=== PATIENT | male | born 1950 | race Hispanic/Latino ===

== ENCOUNTER 2019-05-05 07:55 | Day surgery (SDC) | payer MEDICARE ==
[2019-05-05] VITALS (8 sets, daily range): BP systolic 102–184; BP diastolic 68–96
[~2019-05-05] VITALS: Ht 162.6 cm; Wt 45.7 kg
[~2019-05-05 07:55] MED LIST: LIDOCAINE HCL 1% 20 ML VIAL ONE; PROPOFOL 10 MG/ML 20ML VIAL IV ONE; SODIUM CHLORIDE 0.9% 1000ML 1,000 ML IV ONE
[2019-05-05] MEDS ORDERED: AMLO10TA7 PO (10:07)
[2019-05-05] MEDS ORDERED: MULT-1296 PO (10:07)
[2019-05-05] MEDS ORDERED: TAMS-1 PO (10:07)
[2019-05-05] MEDS ORDERED: FINA5TAB41 PO (10:07)
[2019-05-05] MEDS ORDERED: PROPOFOL 10 MG/ML 20ML VIAL IV ONE (13:00)
[2019-05-05] MEDS ORDERED: GLYCOPYRROLATE 0.2 MG/ML 5 ML VIAL ONE (13:13)
== END 2019-05-05 14:02 | disposition home or self-care (01) ==
LOC: DAH 07:55
PROVIDERS: ATTEND Surgery
DX: K59.09 Other constipation (principal); K57.30 Diverticulosis of large intestine without perforation or abscess without bleeding; K40.90 Unilateral inguinal hernia, without obstruction or gangrene, not specified as recurrent; E11.9 Type 2 diabetes mellitus without complications; Z79.899 Other long term (current) drug therapy; Z98.890 Other specified postprocedural states
CPT/HCPCS: 45378; 82948; 93005; A4215; A4221; A4222; A4223; A4606; A4620; A4663; J2704 ×2; J3490; J7030

== ENCOUNTER → 2020-12-12 | Outpatient (CLI) | payer OTHER, MEDICARE ==
[~2020-12-12] MED LIST changes: +AMLO-258 PO; +FINA5TAB41 PO; -LIDOCAINE HCL 1% 20 ML VIAL ONE; +MULT-1296 PO; -PROPOFOL 10 MG/ML 20ML VIAL IV ONE; -SODIUM CHLORIDE 0.9% 1000ML 1,000 ML IV ONE; +TAMS-1 PO
== END | disposition home or self-care (01) ==
LOC: SHCH 11:07
PROVIDERS: ATTEND Internal Medicine
DX: R91.8 Other nonspecific abnormal finding of lung field (principal)
CPT/HCPCS: 93306; 93356

== ENCOUNTER → 2020-12-27 | Outpatient (CLI) | payer OTHER, MEDICARE | END | disposition home or self-care (01) | LOC: SHCH 13:37 | PROVIDERS: ATTEND Internal Medicine | DX: I82.629 Acute embolism and thrombosis of deep veins of unspecified upper extremity (principal) | CPT/HCPCS: 93971 ==

== ENCOUNTER → 2023-03-26 | Outpatient (CLI) | payer MEDICARE | END | disposition home or self-care (01) | LOC: SHCH 14:58 | PROVIDERS: ATTEND Internal Medicine Cardiovascular Disease | DX: I35.0 Nonrheumatic aortic (valve) stenosis (principal); I51.7 Cardiomegaly; R06.00 Dyspnea, unspecified | CPT/HCPCS: 93306 ==

== ENCOUNTER → 2024-01-07 | Outpatient (CLI) | payer MEDICARE | END | disposition home or self-care (01) | LOC: SHCH 10:20 | PROVIDERS: ATTEND Internal Medicine Cardiovascular Disease | DX: I08.8 Other rheumatic multiple valve diseases (principal); I11.9 Hypertensive heart disease without heart failure; I25.10 Atherosclerotic heart disease of native coronary artery without angina pectoris; E78.5 Hyperlipidemia, unspecified; E11.9 Type 2 diabetes mellitus without complications; Z95.0 Presence of cardiac pacemaker | CPT/HCPCS: 93306 ==

== ENCOUNTER → 2024-03-04 | Outpatient (CLI) | payer MEDICARE ==
[2024-03-04 11:38] LABS: ALBUMIN 4.1 g/dL (3.5-5.0); BILIRUBIN,TOTAL 0.5 mg/dL (0.2-1.0); CREATININE 1.5 mg/dL (0.5-1.3); POTASSIUM 4.7 mmol/L (3.5-5.1); TOTAL PROTEIN, SERUM 8.2 g/dL (6.0-8.3)
== END | disposition home or self-care (01) ==
LOC: LAB 10:37
PROVIDERS: ATTEND Internal Medicine Cardiovascular Disease
DX: I10 Essential (primary) hypertension (principal)
CPT/HCPCS: 36415; 80053

== ENCOUNTER → 2024-03-11 | Outpatient (CLI) | payer MEDICARE ==
[~2024-03-11] MED LIST changes: +IOHEXOL 350 MG/ML 100ML INFUS..BTL IV ONE
== END | disposition home or self-care (01) ==
LOC: RAH 12:00
PROVIDERS: ATTEND Internal Medicine Cardiovascular Disease
DX: I25.10 Atherosclerotic heart disease of native coronary artery without angina pectoris (principal); J44.9 Chronic obstructive pulmonary disease, unspecified; M47.815 Spondylosis without myelopathy or radiculopathy, thoracolumbar region; R06.00 Dyspnea, unspecified; I10 Essential (primary) hypertension
CPT/HCPCS: 75574; Q9967

== ENCOUNTER → 2024-04-14 | Outpatient (CLI) | payer MEDICARE ==
[~2024-04-14] MED LIST changes: +ALBUTEROL 0.083% 2.5 MG/3 ML INH IH ONE; -IOHEXOL 350 MG/ML 100ML INFUS..BTL IV ONE
== END | disposition home or self-care (01) ==
LOC: RESP 12:50
PROVIDERS: ATTEND Internal Medicine Cardiovascular Disease
DX: R06.02 Shortness of breath (principal); R06.09 Other forms of dyspnea; Z87.891 Personal history of nicotine dependence
CPT/HCPCS: 94060; 94729

== ENCOUNTER 2024-08-09 10:26 | Day surgery (SDC) | payer MEDICARE ==
[2024-08-05 12:41] LABS: BASOPHILS # (AUTO) 0.04 K/uL (0.00-0.20); BASOPHILS % (AUTO) 0.8 % (0.0-5.0); EOSINOPHILS # (AUTO) 0.14 K/uL (0.00-0.70); EOSINOPHILS % (AUTO) 2.9 % (0.0-8.0); HEMATOCRIT 36.4 % (42-54); IMMATURE GRANULOCYTE ABSOLUTE 0.01 K/uL (0-1); LYMPHOCYTES # (AUTO) 1.3 K/uL (1.0-4.8); LYMPHOCYTES % (AUTO) 26.8 % (21.0-51.0); MEAN CORPUSCULAR HEMOGLOBIN 30.8 pg (27.0-33.0); MEAN CORPUSCULAR HGB CONC 31.9 g/dL (32.0-36.0); MEAN CORPUSCULAR VOLUME 96.6 fL (79-99); MONOCYTES # (AUTO) 0.4 K/uL (0.1-1.0); MONOCYTES % (AUTO) 8.2 % (3.0-13.0); NEUTROPHILS % (AUTO) 61.1 % (40.0-77.0); PLATELET COUNT (AUTO) 157 K/uL (130-400); RED BLOOD CELL COUNT(AUTO) 3.77 MIL/uL (4.50-6.20); WHITE BLOOD COUNT (AUTO) 4.9 K/uL (4.8-10.8)
[2024-08-05 12:43] VITALS: BP 120/72; PULSE 60; RESP 16; TEMP 98.1
[2024-08-05 12:48] LABS: CREATININE 1.6 mg/dL (0.5-1.3); POTASSIUM 5.2 mmol/L (3.5-5.1)
[2024-08-05 12:51] LABS: INR 1.02 (0.85-1.15); PROTHROMBIN TIME 11.4 SEC (9.6-11.6)
[2024-08-05 12:52] LABS: APPEARANCE,URINE CLEAR (CLEAR); BILIRUBIN,URINE NEGATIVE (NEGATIVE); COLOR,URINE YELLOW (YELLOW); GLUCOSE, URINE (UA) >=1000 mg/dL (NEGATIVE); KETONES,URINE NEGATIVE (NEGATIVE); LEUKOCYTE ESTERASE ,URINE NEGATIVE Leu/uL (NEGATIVE); NITRATE,URINE NEGATIVE (NEGATIVE); OCCULT BLOOD,URINE NEGATIVE (NEGATIVE); PH,URINE 5.5 (5.0-8.0); PROTEIN,URINE 20 mg/dL (NEGATIVE)
[2024-08-05 12:53] LABS: PARTIAL THROMBOPLASTIN TIME 29.5 SEC (26.3-35.5)
[2024-08-05 12:54] LABS: ADD UA MICROSCOPIC YES
[2024-08-05 13:03] LABS: B-TYPE NATRIURETIC PEPTIDE 55 pg/mL (0-100)
[2024-08-05 13:06] LABS: MUCUS,URINE RARE LPF (None Seen); RBC,URINE 0-1 /HPF (0-1); SQUAMOUS EPITHELIAL CELL,UR RARE /HPF (0-2)
--- NOTE | 2024-08-05 13:51 | HMCIMG ---
CHEST 1VW REASON: PRE OP COMPARISON: None. FINDINGS: Single view of the chest was obtained. Lungs are clear. Heart size is normal. There is no pulmonary vascular congestion. Mediastinum and bony thorax appear unremarkable. There is a bipolar pacemaker in place. IMPRESSION: 1. No acute process seen in the chest.
--- NOTE | 2024-08-05 14:48 | EKG ---
Test Date: 2024-08-05 Test Time: 13:22:22 Pat Name: JUNE JOHNSON Department: [facility] Room: Gender: M Educational Diagnostician: [id number] : 1950 Requested By: Ld HUNTER Order Number: [id number] Reading MD: Danial Lopez Measurements Intervals [place] Rate: 60 P: -24 CT: 109 QRS: -66 QRSD: 161 T: 82 QT: 454 QTc: 454 Interpretive Statements Atrial-ventricular dual-paced rhythm Compared to ECG 05/05/2019 09:47:54 Sinus bradycardia no longer present First degree AV block no longer present Right bundle-branch block no longer present Electronically Signed On 08-06-2024 12:19:33 RESEARCH GEOLOGIST by Danial Lopez Please click the below link to view image of tracing.
--- NOTE | 2024-08-06 16:14 | NUR ---
RE: LABS REPORTED BMP TO ANDREW SOLARES NP. RECEIVED ORDERS TO REPEAT BMP ON DAY OF PROCEDURE AND HAVE PATIENT HYDRATE CALLED PATIENT AND SPOKE WITH SPOUSE, INSTRUCTED SPOUSE TO HAVE PATIENT HYDRATE (PLENTY OF WATER) THE DAY BEFORE HIS PROCEDURE. SPOUSE VERBALIZED UNDERSTANDING/INSTRUCTION.
[2024-08-09] VITALS (11 sets, daily range): BP systolic 128–154; BP diastolic 68–93; PULSE 60–63; RESP 14–20; TEMP 97.4–98.1
[~2024-08-09] VITALS: Ht 170.2 cm; Wt 70.3 kg
[~2024-08-09 10:26] MED LIST changes: -ALBUTEROL 0.083% 2.5 MG/3 ML INH IH ONE; -AMLO-258 PO; -FINA5TAB41 PO; +METF-445 PO; +MULT-1259 PO; +ROSU20TA98 PO; +SAW1CAPS7 PO; +TELM40TA8 PO; +VITAMIN B12 PO
[2024-08-09] MEDS ORDERED: 0.9%NACL 1000ML 1,000 ML IV SCH ×2 (11:00→15:30)
[2024-08-09 11:01] LABS: CREATININE 1.5 mg/dL (0.5-1.3); POTASSIUM 4.8 mmol/L (3.5-5.1)
[2024-08-09] MEDS ORDERED: SODIUM BICARB 50MEQ 50ML VIAL 50 ML ONE (13:56)
[2024-08-09] MEDS ORDERED: LIDOCAINE HCL 400MG/20ML VIAL ONE (13:56)
[2024-08-09] MEDS ORDERED: NITROGLYCERIN 50MG VIAL ONE (13:57)
[2024-08-09] MEDS ORDERED: HEParin-NS 1,000 UNIT/500 ML 1,000 ML IV ONE (13:57)
[2024-08-09] MEDS ORDERED: HEParin 10,000 UNIT/10ML (1,000 UNIT/ML) VIAL ONE (13:57)
[2024-08-09] MEDS ORDERED: IOHEXOL 350 MG/ML 100ML INFUS..BTL IV ONE (13:57)
[2024-08-09] MEDS ORDERED: IOHEXOL-350 50ML VIAL IV ONE (13:57)
[2024-08-09] MEDS ORDERED: MIDAZOLAM HCL 1 MG/ML 2ML VIAL ONE ×2 (14:10→14:21)
[2024-08-09] MEDS ORDERED: MEPERIDINE-PF 25 MG/ML SYG ONE ×2 (14:10→14:21)
[2024-08-09] MEDS ORDERED: niCARDIpine 25MG INJ IV ONE (14:22)
[2024-08-09] MEDS ORDERED: HEParin-NS 1,000 UNIT/500 ML 500 ML IV ONE (14:53)
[2024-08-09] MEDS ORDERED: ASPIRIN 325MG EC TAB PO ONE (15:15)
[2024-08-09] MEDS ORDERED: cloPIDOgrel 300MG TAB ONE (15:15)
[2024-08-09] MEDS ORDERED: GLUCAGON 1MG KIT 1 MG ML IM PRN (15:30)
[2024-08-09] MEDS ORDERED: DEXTROSE 50%-WATER 50 ML DISP.SYRIN IV PRN (15:30)
[2024-08-09] MEDS ORDERED: INSULIN humuLIN R 100 UNIT/ML 3ML SQ SCH (16:30)
--- NOTE | 2024-08-09 18:38 | PR ---
PROCEDURES: * Left heart catheterization. * Selective diagnostic right and left coronary arteriogram. * Angioplasty and stenting of the distal LAD. * Angioplasty and stenting of the mid LAD. * Conscious sedation. INDICATIONS: * Recurrent chest discomfort and dyspnea on exertion. * Abnormal coronary CT angiogram. COMPLICATIONS: None. TOTAL CONTRAST: Approximately 100 mL. DESCRIPTION OF PROCEDURE: The patient was taken to the cardiac laborer cheesemaking after the appropriate operative consents were signed. He was prepped and draped in the usual fashion. After conscious sedation was administered, the right radial artery region was infiltrated with 2% Xylocaine without epinephrine. A 6-Czech slender radial sheath was advanced in retrograde fashion with modified Seldinger technique. A TIG 4 catheter was advanced over an indwelling wire. This was selectively engaged in the ostium of the left main. Imaging was obtained in multiplane. Left main was a large vessel that was free of disease. It bifurcated into LAD, and circumflex. Circumflex was moderately sized vessel in its proximal portion, gave rise to a moderately sized OM1, which was a fairly high OM1 almost in the territory of the intermediate distribution. The ongoing circ was small, had a 70% lesion before a distal small OM. The LAD was a large vessel that gave rise to several diagonals and septal perforators. The first diagonal was a moderately large vessel that had a 50% ostial lesion. The LAD had an 80% lesion just distal to the takeoff of the diagonal. This was calcified. The mid and distal LAD had tandem lesions rated at 70% that also calcified. The LAD was notably large in the distal portion in the apex and gave a large recurrent apical branch. The catheter was withdrawn and FR4 catheter was then selectively engaged in the ostium of the right coronary artery. This was a large tortuous vessel that gave rise to an acute marginal PDA and a branching PLVB, which was large. The PDA had a 40% lesion, but the entire RCA had no significant stenotic lesions. The catheter was then engaged in the left ventricular cavity. Left ventricular end-diastolic pressure measurement was obtained. Pullback revealed no aortic stenosis. Given the patient's symptoms and his abnormal coronary CT angiogram and has multiple risk factors, we elected to proceed with angioplasty and stenting of the mid LAD. An XB 3.5 guide catheter, 6-Czech was utilized and engaged in the ostium of the left main. A 0.014 wire was advanced after appropriate ACT measurements were obtained. The wire was placed in the recurrent apical branch of the LAD. The first stent that was deployed was Jalen Dieterich 3.0 x 38, which was placed in the distal to mid LAD and inflated to 12 atmospheres with good results. We then proceeded with placement of an overlapping 3.0 x 34 stent, which traversed all the way to the mid LAD segment just to the area just proximal to the first diagonal, which was jailed, but not compromised. The stent was inflated to 12 atmospheres with good angiographic results. At this point, the catheter was withdrawn over an indwelling J wire. The procedure was completed and the radial band was applied. The patient tolerated the procedure well and left the cardiac laborer cheesemaking in stable condition. FINAL IMPRESSION: * Severe coronary artery disease. * Recurrent angina. * Abnormal coronary CT angiogram. * Successful balloon angioplasty and stenting of the distal and mid LAD with overlapping 3.0 x 38 and a 3.0 x 34 Jalen Dieterich stent with good angiographic results. PLAN: Medical management. TID: [id number] RECEIPT: [id number]
--- NOTE | 2024-08-09 20:00 | NUR ---
reported dr mosquera informed of rt radial site bleeding and that pressure was applied for 20 minutes and pressure dressing applied. ok to discharge if bleeding has subsided. pt taken out via w/c by norman faria. no active bleeding noted. Addendum: 08/09/24 at 2013 by MARCELA SILVA RN RN discharge instructions given to pt and sister.. script also given.
== END 2024-08-09 20:00 | disposition home or self-care (01) ==
LOC: DAH 10:26
PROVIDERS: ATTEND Internal Medicine Cardiovascular Disease
DX: R94.39 Abnormal result of other cardiovascular function study (principal); I25.10 Atherosclerotic heart disease of native coronary artery without angina pectoris; R07.9 Chest pain, unspecified; R06.02 Shortness of breath; I10 Essential (primary) hypertension; E11.9 Type 2 diabetes mellitus without complications; E78.00 Pure hypercholesterolemia, unspecified; N40.0 Benign prostatic hyperplasia without lower urinary tract symptoms; Z79.01 Long term (current) use of anticoagulants; Z95.0 Presence of cardiac pacemaker; Z79.899 Other long term (current) drug therapy; Z98.890 Other specified postprocedural states
CPT/HCPCS: 80048 ×2; 83880; 85025; 85610; 85730; 81001; 36415 ×2; 71045; 93005; 93458; 85347; 82948 ×2; Q9965 ×2; A4223 ×3; A4554; C1769 ×2; C1874 ×2; C1894; C1887; J3490 ×4; J1644 ×3; J2250 ×2; J2175 ×2; Q9967; A4215; A6402; A4335; A4222; A6260; A4221; A4663; A4216; A4606; C9600; 96360; 96361; 99156; 99157

== ENCOUNTER → 2025-03-23 | Outpatient (CLI) | payer MEDICARE, MEDICAID ==
[~2025-03-23] MED LIST changes: -TAMS-1 PO; +TAMS-55 PO
[2025-03-23] MEDS: REGADENOSON 0.4 MG/5 ML PF SYG IVP ONE (11:01)
--- NOTE | 2025-03-24 11:13 | HMCSR ---
APPROVED REPORT Height: 5 ft 5in Weight: 155 lbs TEST INDICATIONS CAD The imaging protocol used to acquire images was Rest Tc-99m/stress Tc-99m 1 day Consent: The procedure was explained and understood by the patient. Informerd consent was witnessed Lupis Schmitt RN First, low dose rest was performed then high dose stress. RESTING DATA: The resting ekg shows: NSR Rest SPECT myocardial perfusion imaging was performed in supine position minutes following the intra venous injection of 11 mCi of Tc-99 Sestamibi. Time of rest injection: 09:00: Date: 03/23/2025 PHARMACOLOGIC STRESS: Pharmacologic stress test was performed by injecting regadenoson 0.4 mg IV push followed by the intra venous injection of 28 mCi of Tc-99 Sestamibi. Time of stress injection: 11:05: Date: 03/23/2025 Heart Rate at time of stress injection: 60 bpm. Gated Stress SPECT was performed 60 minutes after stress injection. The images were gated to evaluate regional wall motion and calculate left ventricular ejection fracti on. STRESS DETAILS Reason for Termination: Infusion complete Stress Symptoms: No chest pain or symptoms Max HR Achieved: 75 bpm % of APMHR Achieved: 60 Max Blood Pressure: 132/94 mmHg Stress ECG: NSR LEFT VENTRICLE Size: The left ventricular size is normal. Systolic Function:The left ventricular systolic function is normal. Wall Motion: No regional wall motion abnormalities noted. The left ventricular ejection fraction was calculated to be 74%.TID = . LV PERFUSION Fixed infero-basilar defect. Conclusion The left ventricular size is normal. The left ventricular systolic function is normal. No regional wall motion abnormalities noted. Fixed infero-basilar defect. The left ventricular ejection fraction was calculated to be 74%.
== END | disposition home or self-care (01) ==
LOC: RAH 08:26
PROVIDERS: ATTEND Internal Medicine Cardiovascular Disease
DX: I25.10 Atherosclerotic heart disease of native coronary artery without angina pectoris (principal)
CPT/HCPCS: 78452; 93017; J2785; A9500 ×2